=== PATIENT | female | born 1985 | race American Indian/Alaskan Native ===

== ENCOUNTER 2019-01-18 00:01 | Emergency (ER) | payer OTHER ==
[2019-01-18 00:18] VITALS: BP 121/78
--- NOTE | 2019-01-18 02:49 | Emergency Department Report ---
ED Headache HPI - General Chief Complaint: Headache Stated Complaint: HEADACHE Time Seen by Provider: 01/18/19 02:39 - History of Present Illness Initial Comments: Due to-year-old -[place] female complains of a headache that comes and goes for 3 weeks. Patient reports that she was seen at the [facility] and had an done at that time. Patient reports they have placed her on Imitrex approximately an Topamax Flonase to then use and an antibiotic. Patient reports that she had a mild concussion while serving in [place]. Patient reports she was evaluated for TBI was found to be negative. Patient denies any PTSD. Patient reports she does not smoke cigarettes or marijuana. She does admit to some mild nausea no vomiting in a hattie photophobia. Patient reports that she was having some episodes of feeling disoriented. Patient's last menstrual period was 11/28/2018 Timing/Duration: other (3 weeks) Quality: moderate Head Injury Location: frontal Recent Head Trauma: frequent headaches Modifying Factors: improves with: exposure to light Associated Symptoms: nausea/vomiting (n). denies: fatigue, facial pain, fever/chills, flushing, nasal congestion, nasal drainage, stiff neck, vision changes Allergies/Adverse Reactions: Allergies No Known Allergies Allergy (Verified 01/18/19 04:09) ED Review of Systems ROS: Stated complaint: HEADACHE Other details as noted in HPI Comment: All other systems reviewed and negative Gastrointestinal: nausea. denies: vomiting Neurological: headache ED Past Medical Hx - Past Medical History Previous Medical History?: Yes - Surgical History Past Surgical History?: Yes - Social History Smoking Status: Never Smoker Substance Use Type: None ED Physical Exam - General Limitations: No Limitations General appearance: alert, in no apparent distress, other (wearing sunglasses) - Head Head exam: Present: atraumatic, normocephalic - Eye Eye exam: Present: PERRL, EOMI, other (darkening around both eyes) - ENT ENT exam: Present: mucous membranes moist - Neck Neck exam: Present: normal inspection, full ROM - Respiratory Respiratory exam: Present: normal lung sounds bilaterally. Absent: respiratory distress - Cardiovascular Cardiovascular Exam: Present: regular rate, normal rhythm. Absent: systolic murmur, diastolic murmur, rubs, gallop - Expanded Neurological Exam Expanded Patient oriented to: Present: person, place, time Cranial nerves: EOM's Intact: Normal, Gag Reflex: Normal, Tongue Deviation: Normal, Nystagmus: Normal, Facial Sensation: Normal, Facial Palsy with Forehead Movement: Normal, Facial Palsy without Forehead Movement: Normal Cerebellar function: Finger to Nose: Normal, Heel to Steven: Normal, Romberg: Normal Upper motor neuron: Car Neglect: Normal, Pronator Drift: Normal, Sensory Extinction: Normal Sensory exam: Upper Extremity Light Touch: Normal, Upper Extremity Pin Prick: Normal, Upper Extremity Temperature: Normal, UE 2 Point Discrimination: Normal, Lower Extremity Light Touch: Normal, Lower Extremity Pin Prick: Normal, Lower Extremity Temperature: Normal, LE 2 Point Discrimination: Normal Motor strength exam: RUE: 4, LUE: 4, RLE: 4, LLE: 4 Best Eye Response ([place]): (4) open spontaneously Best Motor Response (Gabriella): (6) obeys commands Best Verbal Response ([place]): (5) oriented Gabriella Total: 15 - Psychiatric Psychiatric exam: Present: normal mood, flat affect - Skin Skin exam: Present: warm, dry, intact, normal color. Absent: rash ED Course Vital Signs 01/18/19 00:15 Temperature 97.4 F L Pulse Rate 70 Respiratory 16 Rate Blood Pressure 121/78 O2 Sat by Pulse 95 Oximetry ED Medical Decision Making - Lab Data Result diagrams: 01/18/19 03:00 01/18/19 03:00 - Radiology Data Radiology results: report reviewed Patient: MARGAUX CHAPMAN MR#: [id number] : 1985 Acct:[id number] Age/Sex: 33 / F ADM Date: 01/18/19 Loc: ED Attending Dr: Ordering Physician: KAYLA JACK Date of Service: 01/18/19 Procedure(s): CT head/brain wo con Accession Number(s): [id number] cc: KAYLA JACK PROCEDURE: CT HEAD/BRAIN WO CON TECHNIQUE: Computerized tomography of the head was performed without contrast material. CT DOSE LENGTH PRODUCT: mGycm HISTORY: headaches COMPARISONS: None . FINDINGS: Skull and scalp: Normal . Paranasal sinuses: Normal . Ventricles and subarachnoid spaces: Normal . Cerebrum: No evidence of hemorrhage, acute infarction or mass . Cerebellum and brainstem: No evidence of hemorrhage, acute infarction or mass . Vasculature: Normal . IMPRESSION: Normal Examination . This document is electronically signed by Azeem Wooten MD., January 18 2019 03:42:39 AM ET Transcribed By: [place] Dictated By: AZEEM WOOTEN MD Electronically Authenticated By: AZEEM WOOTEN MD Signed Date/Time: 01/18/19 0345 DD/ 4 TD/TT: 01/18/19327 - Medical Decision Making Patient has been evaluated by this provider and ACC. CT of head and brain CBC CMP and TSH Patient was placed and IV has had Reglan 10 mg which she reports is improved her headache. CT negative normal examination. Referral to neurology for further evaluation of migraines. Patient is to continue her migraine medications. Critical care attestation.: If time is entered above; I have spent that time in minutes in the direct care of this critically ill patient, excluding procedure time. ED Disposition Clinical Impression: Migraine Qualifiers: Migraine type: unspecified Status migrainosus presence: without status migrainosus Intractability: intractable Qualified Code(s): G43.919 - Migraine, unspecified, intractable, without status migrainosus Disposition: DC-01 TO HOME OR SELFCARE Is pt being admited?: No Does the pt Need Aspirin: No Condition: Stable Instructions: Migraine Headache (ED) Additional Instructions: CT scan was negative for any abnormalities of the brain. Please continue with medication for migraines. I have referred her to a neurologist for further evaluation. Please give him a call in the morning to make an appointment to be evaluated. Referrals: DHRUV CHIN MD [Primary Care Provider] - 3-5 Days [facility] [Provider Group] - 3-5 Days Forms: Work/School Release Form(ED)
[2019-01-18] MEDS ORDERED: REGLAN IV ONE (03:01)
[2019-01-18] MEDS ORDERED: REGLAN ONE (03:02)
[2019-01-18 03:31] LABS: Basophils % (Auto) 0.4 % (0.0-1.8); Eosinophils # (Auto) 0.2 K/mm3 (0.0-0.4); Eosinophils % (Auto) 2.1 % (0.0-4.3); Hematocrit 39.7 % (30.3-42.9); Hemoglobin 13.4 gm/dl (10.1-14.3); Lymphocytes # (Auto) 2.6 K/mm3 (1.2-5.4); Lymphocytes % (Auto) 28.9 % (13.4-35.0); Mean Corpuscular HGB Conc 34 % (30-34); Mean Corpuscular Volume 90 fl (79-97); Monocytes # (Auto) 0.5 K/mm3 (0.0-0.8); Monocytes % (Auto) 5.8 % (0.0-7.3); Platelet Count 198 K/mm3 (140-440); Red Blood Count 4.41 M/mm3 (3.65-5.03); Red Cell Distribution Width 13.6 % (13.2-15.2)
[2019-01-18] MEDS ORDERED: BENADRYL ONE (03:36)
[2019-01-18] MEDS ORDERED: BENADRYL IV ONE (03:38)
[2019-01-18 03:41] LABS: Alanine Aminotransferase 8 units/L (7-56); Albumin 4.3 g/dL (3.9-5); BUN/Creatinine Ratio 17; Blood Urea Nitrogen 10 mg/dL (7-17); Hemolysis Index 9
--- NOTE | 2019-01-18 03:45 | Cat Scan Report ---
PROCEDURE: CT HEAD/BRAIN WO CON TECHNIQUE: Computerized tomography of the head was performed without contrast material. CT DOSE LENGTH PRODUCT: mGycm HISTORY: headaches COMPARISONS: None . FINDINGS: Skull and scalp: Normal . Paranasal sinuses: Normal . Ventricles and subarachnoid spaces: Normal . Cerebrum: No evidence of hemorrhage, acute infarction or mass . Cerebellum and brainstem: No evidence of hemorrhage, acute infarction or mass . Vasculature: Normal . IMPRESSION: Normal Examination . This document is electronically signed by Azeem Luo MD., January 18 2019 03:42:39 AM ET
== END 2019-01-18 04:22 | disposition home or self-care (01) ==
LOC: ED 00:01
DX: G43.919 Migraine, unspecified, intractable, without status migrainosus (principal)
CPT/HCPCS: 36415; 70450; 80053; 84443; 84703; 85025; 96374; 96375; 99284; J1200; J2765